=== PATIENT | male | born 1935 | race Caucasian/White ===

== ENCOUNTER 2018-12-11 02:20 | Inpatient (IN) ==
[2018-12-11] MEDS ORDERED: Aminoglycoside Consult 1 EACH MC ONE (04:10)
[2018-12-11 05:15] LABS: Basophils % 0.1 %; Eosinophils % 0.1 %; Hematocrit 34.4 % (37.5-50.1); Hemoglobin 10.6 g/dL (12.9-16.9); Immature Granulocytes % 0.2 % (0-4); Lymphocytes # 0.6 K/mcL (0.6-4.6); Lymphocytes % 4.9 %; Mean Corpuscular HGB Conc 30.8 g/dL (31.6-35.5); Mean Corpuscular Hemoglobin 29.6 pg (28.0-33.3); Mean Corpuscular Volume 96.1 fL (83.0-100.0); Mean Platelet Volume 9.7 fL (9.4-12.4); Monocytes # 0.7 K/mcL (0.0-1.3); Monocytes % 5.6 %; Neutrophils # 11.4 K/mcL (1.6-8.9); Platelet Count 178 K/mcL (140-400); Red Blood Count 3.58 M/mcL (4.19-5.50); Red Cell Distribution Width 15.3 % (11.5-14.5); Segmented Neutrophils % 89.1 %
[2018-12-11 05:22] LABS: INR 1.1; Prothrombin Time 11.9 Seconds (9.4-12.1)
[2018-12-11 05:24] LABS: Activated Partial Thrombo Time 43.4 Seconds (26.0-36.0)
[2018-12-11 05:35] LABS: Albumin 3.4 g/dL (3.5-5.7); Bilirubin,Direct 0.1 mg/dL (0.0-0.2); Bilirubin,Indirect 0.4 mg/dL (0.0-1.2); Bilirubin,Total 0.5 mg/dL (0.3-1.0); Calcium 8.2 mg/dL (8.6-10.3); Globulin 3.3 g/dL (2.4-3.5); Potassium 4.2 mEq/L (3.5-5.1); Total Protein 6.7 g/dL (6.4-8.9)
[2018-12-11] MEDS: Pantoprazole 40 MG in 0.9 % Sodium Chloride Mini Bag 100 ML IVC SCH ×4 (05:52→23:35)
[2018-12-11] MEDS: Ondansetron 4 MG/2 ML VIAL IVP PRN (05:54)
[2018-12-11] MEDS ORDERED: Naloxone 0.4 MG/ML INJ IVP PRN (05:55)
--- NOTE | 2018-12-11 06:09 | Internal Med History&Physical ---
Date of Encounter: 12/11/18 Time of Encounter: 05:40 Internal Medicine - H&P: HPI Chief complaint: hematemesis; bloody stool Admitted From: Hospital to Hospital Transfer Plans for Post Hospital Care: Home History of present illness: Mr. Bain is a 83 year old male who presents in transfer from [place] [facility] for concerns of hematemesis followed by bloody stool. He initially thought he had some gastroenteritis as he had acute onset of nausea, abdominal cramping, and vomiting. He did have some coffee-ground emesis and then bloody stool at home. This prompted him to go to the ER where he was seen, evaluated, and transferred here to [facility] for further workup and care. Prior to my assessment of the patient, his nurse stated he had one bloody bowel movement. I ordered some stat labs and medications and then I saw him shortly thereafter. His repeat hemoglobin is actually a little higher than it was at [place]. He does describe 2 bouts of bloody stools today and then coffee-ground emesis earlier tonight. Prior to today, has had no vomiting blood or bloody stools. He has had some heartburn for last 3 days. He has had some nausea and poor appetite last 2 days. He denies any fevers, chills, or night sweats. He does state he has had a history of stomach ulcer many years ago and that his symptoms he has now are identical to when he had his ulcer. He denies any heavy alcohol use, heavy NSAID use, or heavy caffeine use. Past Med Surg Social Fam HX - Past Medical History Attestation: Yes The following information was validated with the patient. Source: patient, old records reviewed Medical history: arthritis (Gout), coronary artery disease, GERD, GI bleed, hyperlipidemia, hypertension, renal disease, thyroid disease Additional medical history: murrur, stomach ulcers Psychiatric history: no psych history - Past Surgical History Surgical History: angioplasty/stent (Single, 2015), appendectomy, orthopedic, other (Rotator cuff repair) Additional surgical history: rotator cuff - Social History Smoking Status: Never smoker Smokeless Tobacco Status: No Alcohol use: occasionally Drug use: none Current living situation: Home, With Family Activity Level: Independent ambulation Recent Out of Country Travel Within the Last 8 Weeks: No - Family History Mother History Unknown: Yes Living Status: Father History Unknown: Yes Living Status: Internal Medicine - H&P: Meds Atorvastatin [Lipitor] 40 mg PO HS 12/11/18 [History] Febuxostat [Uloric] 40 mg PO DAILY 12/11/18 [History] Furosemide [Lasix] 10 mg PO BID 12/11/18 [History] Levothyroxine [Synthroid] 150 mcg PO DAILY 12/11/18 [History] Metoprolol [Lopressor] 100 mg PO BID 12/11/18 [History] Allergy/AdvReac Type Severity Reaction Status Date / Time No Known Allergies Allergy Unverified 12/11/18 00:55 - Constitutional Constitutional: no chills, no fever(s), no night sweats - EENT Eyes: no blurry vision, no change in vision Ears: no ear pain, no tinnitus Nose, mouth and throat: no nasal congestion, no sinus pressure, no sore throat - Cardiovascular Cardiovascular ROS IM: no chest pain, no dyspnea, no dyspnea on exertion, no orthopnea, no palpitations, no syncope - Respiratory Respiratory: no cough, no hemoptysis, no wheezing, no chest congestion, no excessive phlegm production, no change in phlegm color - Gastrointestinal Gastrointestinal: coffee ground emesis, cramping, heartburn, hematochezia, nausea, vomiting, no diarrhea, no melena - Genitourinary Genitourinary ROS male: no dysuria, no flank pain, no hematuria - Musculoskeletal Musculoskeletal ROS IM: no arthralgias, no back pain - Integumentary Integumentary IM: no rash, no jaundice - Neurological Neurological ROS: no dizziness, no focal weakness, no frequent falls, no headache(s) - Psychiatric Psychiatric: no anxiety, no depression - Endocrine Endocrine IM: no polydipsia, no polyphagia, no polyuria - Allergic/Immunologic Allergic/Immunologic: GI upset with certain foods, no wheezing - Constitutional Vitals: Temp Pulse Resp BP Pulse Ox 97.7 F 72 15 165/73 95 12/11/18 04:37 12/11/18 04:37 12/11/18 04:37 12/11/18 04:37 12/11/18 04:37 General appearance: Present: cooperative, A&O X 3, pleasant, no acute distress, answers questions appropriately Exam: see below - Head Head exam: Present: atraumatic, normal inspection - Eye Eye exam: Present: EOMI, PERRL. Absent: scleral icterus Pupils: Present: normal accommodation - ENT ENT exam: Present: mucous membranes dry, normal exam, normal oropharynx - Neck Neck exam general surgery: Present: full ROM, supple, trachea midline. Absent: tenderness, nuchal rigidity, thyromegaly - Respiratory Respiratory exam: Present: CTAB. Absent: chest wall tenderness, rales, rhonchi, wheezes - Cardiovascular Cardiovascular exam: Present: RRR, +S1, +S2, systolic murmur (grade 3). Absent: diastolic murmur - GI/Abdominal GI/Abdominal exam: Present: normal bowel sounds, soft, tenderness (epigastric/RUQ area), no peritoneal signs. Absent: guarding, hepatomegaly, mass, rebound, splenomegaly - Extremities Exam Extremities exam: Present: full ROM, normal capillary refill, warm, radial puls es palpable and symmetrical. Absent: calf tenderness, pedal edema, tenderness - Back Exam Back exam: Absent: CVA tenderness (L), CVA tenderness (R) - Neurological Exam Neurological exam: Present: alert, CN II-XII intact, oriented X3, no focal deficits, strengths equal and symetr throughout - Psychiatric Psychiatric exam: Present: normal affect, normal mood - Skin Skin exam: Present: dry, intact, warm Internal Med - H&P Results - Labs CBC & Chem 7: 12/11/18 05:00 12/11/18 05:00 Labs: Short CBC 12/11/18 Range/Units 05:00 WBC 12.8 H (4.3-11.1) K/mcL Hgb 10.6 L (12.9-16.9) g/dL Hct 34.4 L (37.5-50.1) % Plt Count 178 (140-400) K/mcL Neutrophils # 11.4 H (1.6-8.9) K/mcL BMP 12/11/18 05:00 Sodium 138 Potassium 4.2 Chloride 107 Carbon Dioxide 21 L BUN 48 H Creatinine 1.58 H Glucose 137 H Calcium 8.2 L Liver Function 12/11/18 Range/Units 05:00 Total Bilirubin 0.5 (0.3-1.0) mg/dL Direct Bilirubin 0.1 (0.0-0.2) mg/dL AST 28 (13-39) Units/L ALT 13 (7-52) Units/L Alkaline Phosphatase 80 (34-104) Units/L Albumin 3.4 L (3.5-5.7) g/dL - EKG Data -: EKG Interpreted by Myself - EKG Data Prior EKG available for review: no EKG comments: 12/11/18 06:16 NSR; subtle ST-T depressions laterally - Assessment and plan (1) Upper GI bleeding Current Visit: Yes Status: Acute Assessment and plan: 1. Will type and cross PRBC units for possible transfusion. 2. Monitor serial H/H. 3. Will place on protonix drip. 4. Patient will need EGD today or tomorrow; Colonoscopy likely outpatient. (2) Abdominal pain Current Visit: Yes Status: Acute Assessment and plan: 1. Will order CT scan of abdomen, draw blood cultures, and start IV antibiotics to cover GI jazlyn. Qualifiers: Abdominal location: epigastric Qualified Code(s): R10.13 - Epigastric pain (3) Chronic renal insufficiency Current Visit: No Status: Acute Assessment and plan: 1. Monitor renal function and consult nephrology if function declines. 2. Will provide jayden iVF hydration. Qualifiers: Chronic kidney disease stage: stage 2 (mild) Qualified Code(s): N18.2 - Chronic kidney disease, stage 2 (mild) (4) DVT prophylaxis Current Visit: Yes Status: Acute Assessment and plan: 1, EPCD's. - Time Spent With Patient Total time spent is greater than 50% in coordination of care (as documented) at patient's floor/unit and/or counseling patient:
[2018-12-11] MEDS: 0.9 % Sodium Chloride 1,000 ML IVC SCH ×2 (09:50→19:53)
[2018-12-11] MEDS: MetroNIDAZOLE 500 MG/100 ML 500 MG/100 ML BAG IVPB SCH ×2 (09:53→16:33)
[2018-12-11] MEDS: Piperacillin/Tazobactam 3.375 GM in 0.9 % Sodium Chloride Mini Bag 100 ML IVPB SCH ×2 (09:56→16:33)
[2018-12-11 11:02] LABS: Hematocrit 32.7 % (37.5-50.1); Hemoglobin 10.5 g/dL (12.9-16.9)
[2018-12-11] MEDS: Nitroglycerin 0.4 MG TAB.SUBL SL PRN ×4 (14:41→19:10)
[2018-12-11] MEDS ORDERED: Furosemide 20 MG TABLET PO PRN (15:54)
[2018-12-11] MEDS ORDERED: *HR* Heparin 5,000 UNIT/ML VIAL IVP PRN ×2 (16:29)
[2018-12-11] MEDS ORDERED: *HR* Heparin 5,000 UNIT/ML VIAL IVP ONE (16:29)
--- NOTE | 2018-12-11 16:41 | Event Note ---
Date of Encounter: 12/11/18 Time of Encounter: 16:36 Patient was seen and examined. I evaluated the patient this morning. He was doing well. Admitted by my Colleague for GI bleed issues. Did not have any episodes of bleed while here. His H/H has been stable. Hgb most recent 10.5 at 10:49 am and prior to that 10.6 at 5:00 am. Vitals been stable. Around 3:45 pm he started developing typical chest pain symptoms. Trops ordered and EKG. SL nitro relieved pain a couple times. Ended up ordering Nitro drip. Trops came back high at .30. EKG concerning for ST elevation in lead III. Multiple ST depressions and T wave inversions noted. This was all new compared to previous EKGs this morning upon admission and from one on record from 2017. Patient has a history of CAD and he tells me Dr. Juarez put "one stent in the main artery". Spoke to Dr. Muna Oliveira and sent her the EKG and she was concerned for ischemic changes as well. Patient with GI bleed but no issues with bleed while here. With current chest pain and hemodynamic stability and after speaking with Dr. Oliveira, she was agreeable to starting heparin drip. Will transfer to 2N/ICU. Trend cardiac enzymes. Will repeat EKG in [address] Oliveira.
[2018-12-11 17:21] LABS: Hematocrit 30.8 % (37.5-50.1); Hemoglobin 9.8 g/dL (12.9-16.9); Mean Corpuscular HGB Conc 31.8 g/dL (31.6-35.5); Mean Corpuscular Hemoglobin 30.2 pg (28.0-33.3); Mean Corpuscular Volume 94.8 fL (83.0-100.0); Mean Platelet Volume 9.6 fL (9.4-12.4); Platelet Count 175 K/mcL (140-400); Red Blood Count 3.25 M/mcL (4.19-5.50); Red Cell Distribution Width 15.4 % (11.5-14.5)
[2018-12-11 17:29] LABS: Prothrombin Time 11.8 Seconds (9.4-12.1)
[2018-12-11] MEDS ORDERED: Nitroglycerin 0.4 MG TAB.SUBL SL ONE (17:46)
[2018-12-11] MEDS: Heparin 25,000 UNIT/500 ML D5W 25,000 UNIT/500 ML BAG IVC SCH (18:00)
[2018-12-11] MEDS ORDERED: *HR* Morphine 2 MG/ML SYRINGE IVP ONE (18:15)
[2018-12-11] MEDS ORDERED: *HR* Morphine 2 MG/ML SYRINGE IVP PRN (18:47)
[2018-12-11] MEDS: Nitroglycerin 25 MG/250 ML INFUS..BTL IVC SCH (19:00)
[2018-12-11] MEDS: Metoprolol 100 MG TABLET PO SCH (20:12)
--- NOTE | 2018-12-11 20:16 | Cardiology Consult Note ---
Date of Encounter: 12/11/18 Time of Encounter: 19:45 Assessment and Plan (1) Chest pain Current Visit: Yes Status: Acute Pt's chest discomfort likely multifactorial. EKG demonstrates diffuse ST depression concerning for ischemia. Has mild elevation of troponin to 0.33, 0.42. Has known history of severe 3VCAD. Currently CP free on NTG and heparin gtts. Has history of ulcer disease and presented with hematemesis and hematochezia concerning for acute GI bleed. Discussed options with patient and hospitalist. Difficult situation due to concern of active GI bleed. Will monitor pt closely overnight. If symptoms become refractory to aggressive m edical management, will consider emergent [facility] tonight, although will be increased risk and options are limited due to GI bleeding. Primary service will continue to monitor for recurrent GI bleeding and monitor Hb. Would transfuse to keep Hb around/above 10. Will check echocardiogram to evaluate LV function, . Qualifiers: Chest pain type: unspecified Qualified Code(s): R07.9 - Chest pain, unspecified (2) Coronary artery disease Current Visit: Yes Status: Chronic Known history of CAD s/p PCI with BMS 2014. Continue aspirin, nitrates, beta blockade. Qualifiers: Coronary Disease-Associated Artery/Lesion type: [place] artery [place] vs. transplanted heart: [place] heart Associated angina: with unstable angina Qualified Code(s): I25.110 - Atherosclerotic heart disease of [place] coronary artery with unstable angina pectoris (3) History of coronary artery stent placement Current Visit: No Status: Chronic (4) Upper GI bleeding Current Visit: Yes Status: Acute Per primary service. (5) Syncope Current Visit: Yes Status: Acute Per reports, occurred in setting of n/v, hematemesis. Will monitor on telemetry for arrhythmia. Qualifiers: Syncope type: unspecified Qualified Code(s): R55 - Syncope and collapse Discussion w patient/family: The assessment and plan as outlined above was discussed with the patient and/or family members who expressed understanding and agreement. All questions were answered. Thank you for involving us in the care of your patient. Please call with any questions. History of Present Illness Consult date: 12/11/18 Consult reason: chest pain Chief complaint: chest pain History of present illness: Mr. Bain is a 83 year old male with CAD s/p PCI, mild , HTN, hyperlipidemia, GERD presents to [facility] as transfer from [place] [facility] for evaluation of GI bleed. Pt states that over past few days has had intermittent chest discomfort described as indigestion, burning similar to previous ulcer. Separately, he also has noted intermittent chest pain that he has been taking isosorbide for over the past few months. The isosorbide did relieve his chest pain, but not the indigestion/chest burning. Yesterday, at home pt had acute onset of n/v, abdominal discomfort. Subsequently had emesis that "looked like coffee." Pt unsure but thinks he may have lost consciousness for a few minutes. States then called EMS. Pt taken to [place] ED for further evaluation and then pt then transferred here. While on floor, per pt and notes, pt had bloody BM. Earlier this evening, pt had onset of substernal chest discomfort only temporarily relieved by SL NTG. EKG performed which demonstrated ST depression in precordial leads as well as I, aVL and 0.[address] elevation in III. Pt started on NTG gtt, heparin gtt and given Plavix load and transferred to ICU. I was called to see pt due to EKG changes, CP. On my arrival to ICU, pt currently chest pain free, resting comfortably. Pt has known history of CAD s/p PCI of RCA with BMS in 2014. Reviewed report and catheterization films. Distal L main 30% with 40% prox LAD, 50% mid LAD, 95% small diagonal 1. Proximal Cx 90%- small vessel not amenable to revascul arization. RCA is dominant vessel and is diffusely diseased and heavily calcified vessel. Mid RCA had 95% lesion which was stented with BMS. Distal RCA was heavily calcified with 60-70% lesions, 80% R PDA. Per cath report, Dr. Juarez unable to pass equipment into distal RCA due to heavy calcification. Medical therapy recommended vs. possible rotablator. Had stress test 2016 which demonstrated fixed perfusion defect of inferior and inferolateral mc consistent with prior infarct. Negative for ischemia, EF 57%. Most recent echocardiogram April 2017- EF 60% with normal LV size, basal inferior wall hypokinesis, mild , moderate LAE. Past Med Surg Social Fam HX - Past Medical History Medical history: arthritis (Gout), coronary artery disease, GERD, GI bleed, hyperlipidemia, hypertension, renal disease, thyroid disease Additional medical history: murrur, stomach ulcers Psychiatric history: no psych history - Past Surgical History Surgical History: angioplasty/stent (Single, 2015), appendectomy, orthopedic, other (Rotator cuff repair) Additional surgical history: rotator cuff - Social History Smoking Status: Never smoker Smokeless Tobacco Status: No Alcohol use: occasionally Drug use: none - Family History Mother History Unknown: Yes Living Status: Father History Unknown: Yes Living Status: Medications and Allergies Atorvastatin [Lipitor] 40 mg PO HS 12/11/18 [History] Febuxostat [Uloric] 40 mg PO DAILY 12/11/18 [History] Furosemide [Lasix] 10 mg PO BID 12/11/18 [History] Levothyroxine [Synthroid] 150 mcg PO DAILY 12/11/18 [History] Metoprolol [Lopressor] 100 mg PO BID 12/11/18 [History] Allergy/AdvReac Type Severity Reaction Status Date / Time No Known Allergies Allergy Unverified 12/11/18 00:55 All Systems Review: The remainder of the systems were reviewed and are negative - Cardiovascular Cardiovascular: as per HPI Physical Examination Vital Signs, Last 4 Hours Temp Pulse Resp BP Pulse Ox 12/11/18 19:00 97.7 F 91 18 143/77 97 12/11/18 16:59 98.4 F 87 22 131/62 94 12/11/18 16:15 98.5 F 99 123/62 General: Conversant, No Apparent Distress HEENT: Atraumatic, Normocephaly, Mucus Membranes Moist Neck: No JVD, Normal carotid pulses Cardiac: Reg Rate and Rhythm, Normal S1 and S2, Other (grade 2/6 systolic murmur LSB) Lungs: Normal Breath Sounds, No Wheeze, Rales, Rhonchi Neuro: Alert and responsive, No focal deficits noted Abdomen: Soft, Non-Tender Skin: No rashes noted on visualized skin Musculoskeletal: No Chest Wall Tenderness Extremities: No Clubbing, No Cyanosis, No Edema, Normal Pulses Results 12/11/18 17:01 12/11/18 05:00 Lab Results 12/11/18 12/11/18 12/11/18 05:00 05:00 05:00 WBC 12.8 H Hgb 10.6 L Hct 34.4 L Plt Count 178 INR 1.1 APTT 43.4 H Sodium 138 Potassium 4.2 Chloride 107 Carbon Dioxide 21 L BUN 48 H Creatinine 1.58 H Glucose 137 H Calcium 8.2 L Magnesium 2.0 Total Bilirubin 0.5 AST 28 ALT 13 Alkaline Phosphatase 80 Troponin I Amylase 57 Lipase 40 12/11/18 12/11/18 12/11/18 10:49 14:54 17:01 WBC 10.4 Hgb 10.5 L 9.8 L Hct 32.7 L 30.8 L Plt Count 175 INR APTT Sodium Potassium Chloride Carbon Dioxide BUN Creatinine Glucose Calcium Magnesium Total Bilirubin AST ALT Alkaline Phosphatase Troponin I 0.30 H* Amylase Lipase 12/11/18 12/11/18 17:01 17:01 WBC Hgb Hct Plt Count INR 1.0 APTT Sodium Potassium Chloride Carbon Dioxide BUN Creatinine Glucose Calcium Magnesium Total Bilirubin AST ALT Alkaline Phosphatase Troponin I 0.42 H* Amylase Lipase Consult Discharge Plan - Plan Referrals: NONE,PCP [Primary Care Provider] -
[2018-12-12] MEDS: MetroNIDAZOLE 500 MG/100 ML 500 MG/100 ML BAG IVPB SCH (00:04)
[2018-12-12] MEDS: Aspirin 81 MG TAB.CHEW PO SCH ×2 (00:11→09:45)
[2018-12-12] MEDS: Piperacillin/Tazobactam 3.375 GM in 0.9 % Sodium Chloride Mini Bag 100 ML IVPB SCH (00:19)
[2018-12-12] MEDS: 0.9 % Sodium Chloride 1,000 ML IVC SCH ×2 (02:08→05:15)
[2018-12-12] MEDS: Pantoprazole 40 MG in 0.9 % Sodium Chloride Mini Bag 100 ML IVC SCH ×5 (04:26→23:17)
[2018-12-12] MEDS: Nitroglycerin 0.4 MG TAB.SUBL SL PRN ×3 (05:47→17:10)
[2018-12-12] MEDS ORDERED: Perflutren Lipid Microsphere 1.3 ML in 0.9 % Sodium Chloride 8.7 ML IVP ONE (07:05)
--- NOTE | 2018-12-12 07:43 | Internal Med Progress Note ---
Hospitalist Progress Note - Encounter Date of Encounter: 12/12/18 Time of Encounter: 07:41 - Subjective Interval History: Patient had chest pain overnight and elevation in his troponin with ST changes. He was seen by cardiology, Dr. Oliveira who spoke with the patient. Plans for possible intervention today. He was started on nitroglycerin drip and heparin drip. Patient states he is doing well this morning. States his chest pain resolved an hour ago. Denies abdominal pain. Patient had 1 bowel movement overnight that was determined to have dark blood consistent with old blood in it. No nausea or vomiting overnight. He does complain of a cough with productive sputum. Vital stable. - Exam Vitals: Temp Pulse Resp BP Pulse Ox 98.2 F 70 14 104/59 89 12/12/18 03:42 12/12/18 06:00 12/12/18 06:00 12/12/18 06:00 12/12/18 06:00 Exam: Gen: alert, no acute distress Eyes: EOMI intact. normal conjunctiva ENT: oral mucosa moist Cardiovascular: RRR, bilateral radial pulses equal, normal S1, S2 Respiratory: decreased breath sounds on the left, Right clear to auscultation. No wheezing or rhonchi Abdomen soft, non tender, no distention Extremities: normal capillary refill. No tenderness on extremities, mild BLE edema Psych: Normal mood and affect Neuro: AAOx3 Skin: warm, dry, intact - Assessment and Plan (1) STEMI (ST elevation myocardial infarction) Current Visit: Yes Status: Acute Assessment and Plan: Historyof 3VCAD. 1 stent placed in the RCA in the past. Troponin 0.3, 0.42, 2.97, 8.40 on this admission EKG with ST changes and ischemia concerning for inferior [facility] Cardiology following. Appreciate their recommendations. Medical management. On heparin and Plavix. Received loading dose of plavix yesterday. Left heart cath today. Echo completed and results pending. (2) GI bleed Current Visit: Yes Status: Acute Assessment and Plan: No further episodes of hematemesis or hematochezia, melena. H/H stable. Likely source is upper GI bleed. CT with possible gastritis/duodenitis On Protonix drip. Will likely need upper endoscopy. GI on consult (3) Abdominal pain Current Visit: Yes Status: Resolved Assessment and Plan: Resolved. CT abdomen and pelvis without IV or oral contrast performed yesterday. Results with inflammatory changes and flattened stranding, mild wall thickening in the second portion of the duodenum concerning for possible duodenitis/PUD. Flagyl discontinued after speaking with pharmacy Continue with Zosyn, day 2, for possible duodenitis (4) Left upper lobe pneumonia Current Visit: Yes Status: Acute Assessment and Plan: CT imaging shows focal consolidation the lingula with bronco grams which may represent left upper lobe pneumonia. Currently on Zosyn. Nasal swab for MRSA sent. Negative. Patient received one dose vancomycin which has been discontinued as swab is negative. (5) Chronic renal insufficiency Current Visit: No Status: Acute Assessment and Plan: Stable. 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 on CT DVT Prophylaxis: heparin - Time Spent with Patient Total time spent is greater than 50% in coordination of care (as documented) at patient's floor/unit and/or counseling patient: Plan of Care Discussed with: other (pharmacy) Internal Medicine: Result - Labs CBC & Chem 7: 12/12/18 09:18 12/12/18 09:18 Labs: Short CBC 12/11/18 12/11/18 Range/Units 10:49 17:01 WBC 10.4 (4.3-11.1) K/mcL Hgb 10.5 L 9.8 L (12.9-16.9) g/dL Hct 32.7 L 30.8 L (37.5-50.1) % Plt Count 175 (140-400) K/mcL Cardiac Enzymes 12/11/18 12/11/18 12/11/18 Range/Units 14:54 17:01 23:03 Troponin I 0.30 H* 0.42 H* 2.97 H* (< 0.04) ng/mL - ABG Interpretation ABG results: PT/INR, D-dimer PT 11.8 Seconds (9.4-12.1) 12/11/18 17:01 - Impressions Impressions Abdomen/Pelvis CT 12/11/18 06:16 IMPRESSION: Focal inflammatory changes and fat stranding with possible mild wall thickening of the second portion of the duodenum. This is nonspecific on this CT examination without intravenous or oral contrast. Recommend endoscopic correlation for possible peptic ulcer disease or duodenitis given history of GI bleed. Focal consolidation in the lingula with air bronchograms may represent left upper lobe pneumonia. Bronchiectasis in both lung bases with scarring in the right middle lobe likely sequela of prior infectious/inflammatory process. Calcified pleural plaques at the right lung base may represent sequela of prior asbestos exposure or may represent sequela of prior empyema. Severe atherosclerotic calcifications of the coronary arteries as well as the aorta and branch vessels. 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 D/ / 12/11/2018 09:17:58 Nav Valle MD / [place] Interpreting Provider: Nav Valle MD Consult Discharge Plan - Plan Referrals: NONE,PCP [Primary Care Provider] - (1) STEMI (ST elevation myocardial infarction) Qualifiers: Involved coronary artery: unspecified coronary artery Qualified Code(s): I21.3 - ST elevation (STEMI) myocardial infarction of unspecified site (2) GI bleed Qualifiers: GI bleed type/associated pathology: gastric ulcer Qualified Code(s): K25.4 - Chronic or unspecified gastric ulcer with hemorrhage (3) Abdominal pain Qualifiers: Abdominal location: epigastric Qualified Code(s): R10.13 - Epigastric pain (5) Chronic renal insufficiency Qualifiers: Chronic kidney disease stage: stage 2 (mild) Qualified Code(s): N18.2 - Chronic kidney disease, stage 2 (mild)
--- NOTE | 2018-12-12 08:34 | Cardiology Progress Note ---
Date of Encounter: 12/12/18 Time of Encounter: 08:00 Assessment and Plan (1) Chest pain Current Visit: Yes Status: Acute Patient initially presented to [place] ED on 12/10/18 due to hematochezia and melena secondary to ulcer "flare," developed CP as inpatient on 12/11. Pt's chest discomfort likely multifactorial. EKG demonstrates diffuse ST depression concerning for ischemia. Peak troponin thus far, 2.97--continue to trend. Has known history of severe 3 VCAD. Episode of chest pain again this morning requiring NTG tab and increase in NTG gtt; chest pain free upon exam. He reports worsening angina over the past several months; utilizes prn Isordil at home for breakthrough relief. Again, has history of ulcer disease and presented with hematemesis and hematochezia concerning for acute GI bleed; Dr. Muna Oliveira discussed and reviewed options/high risk LHC with patient. Difficult situation due to concern of active GI bleed--H/H has remained stable on heparin gtt, asa/plavix--continue to determine if patient can tolerate DAPT. CBC pending this AM. Echo pending. Will continue to monitor pt closely. Will discuss and review with Dr. Juarez Qualifiers: Chest pain type: chest pain due to myocardial ischemia Ischemic chest pain type: unstable angina pectoris Qualified Code(s): I20.0 - Unstable angina (2) Coronary artery disease Current Visit: Yes Status: Chronic Known history of CAD s/p PCI with BMS 2014. Continue aspirin, nitrates, beta blockade. Qualifiers: Coronary Disease-Associated Artery/Lesion type: osage artery U[place] vs. t ransplanted heart: osage heart Associated angina: with unstable angina Qualified Code(s): I25.110 - Atherosclerotic heart disease of osage coronary artery with unstable angina pectoris (3) History of coronary artery stent placement Current Visit: No Status: Chronic (4) GI bleed Current Visit: Yes Status: Acute Qualifiers: GI bleed type/associated pathology: gastric ulcer Qualified Code(s): K25.4 - Chronic or unspecified gastric ulcer with hemorrhage Discussion w patient/family: The assessment and plan as outlined above was discussed with the patient and/or family members who expressed understanding and agreement. All questions were answered. Thank you for involving us in the care of your patient. Please call with any questions. Subjective Principal diagnosis: GI bleed, elevated troponin Interval history: Seen and examined. Episode of typical chest pain/angina this AM, now pain free after NTG gtt titration and prn NTG tab. No further episodes of melena, hematochezia. No other symptoms reported this AM. technology consultant at bedside. Objective Vital Signs, Last 4 Hours Temp Pulse Resp BP Pulse Ox 12/12/18 08:21 98.5 F 12/12/18 08:05 69 12/12/18 08:00 98.5 F 71 18 113/61 94 12/12/18 07:00 63 16 99/56 93 12/12/18 06:00 70 14 104/59 89 12/12/18 05:00 62 16 94/50 100 General: Conversant HEENT: Atraumatic, Normocephaly, Mucus Membranes Moist Cardiac: Reg Rate and Rhythm, Normal S1 and S2 Lungs: Normal Breath Sounds Neuro: Alert and responsive Abdomen: Soft Skin: No rashes noted on visualized skin Musculoskeletal: No Chest Wall Tenderness Extremities: Other (mild, BLE edema. ) Results 12/11/18 17:01 12/11/18 05:00 Lab Results 12/11/18 12/11/18 12/11/18 10:49 14:54 17:01 WBC 10.4 Hgb 10.5 L 9.8 L Hct 32.7 L 30.8 L Plt Count 175 INR Troponin I 0.30 H* 12/11/18 12/11/18 12/11/18 17:01 17:01 23:03 WBC Hgb Hct Plt Count INR 1.0 Troponin I 0.42 H* 2.97 H* Active Medications Aspirin (Aspirin) 81 mg PO DAILY [facility] Stop: 06/12/19 21:01 Last Admin: 12/12/18 00:11 Dose: 81 mg Atorvastatin Calcium (Lipitor) 80 mg PO HS [facility] Stop: 06/12/19 21:01 Last Admin: 12/11/18 20:12 Dose: 80 mg Clopidogrel Bisulfate (Plavix) 75 mg PO DAILY [facility] Stop: 06/13/19 09:01 Furosemide (Lasix) 20 mg PO DAILY PRN PRN Reason: Edema Stop: 06/12/19 15:55 Heparin Sodium (Porcine) (Heparin) 4,000 unit IVP Q6HR PRN PRN Reason: SEE COMMENTS Stop: 06/12/19 16:30 Heparin Sodium (Porcine) (Heparin) 2,000 unit IVP Q6H PRN PRN Reason: SEE COMMENTS Stop: 06/12/19 16:30 Pantoprazole Sodium 40 mg/ (Sodium Chloride) 100 mls @ 20 mls/hr IVC .Q5H [facility] Stop: 06/12/19 04:46 Last Admin: 12/12/18 04:26 Dose: 20 mls/hr Piperacillin Sod/Tazobactam (Sod 3.375 gm/ Sodium Chloride) 100 mls @ 25 mls/hr IVPB Q8HR [facility] Stop: 06/12/19 08:01 Last Infusion: 12/12/18 04:30 Dose: Infused Heparin Sodium/Dextrose (Heparin 25,000 Unit/500 Ml D5w) 25,000 unit in 500 mls @ 20.01 mls/hr IVC .Q24H [facility]; Protocol Stop: 06/12/19 16:31 Last Titration: 12/12/18 03:34 Dose: 7.05 unit/kg/hr, 14.7 mls/hr Nitroglycerin (Nitroglycerin Premix 25 Mg/250 Ml) 25 mg in 250 mls @ 1.5 mls/hr IVC .Q24H [facility]; Protocol Stop: 06/12/19 16:31 Last Titration: 12/12/18 05:46 Dose: 20 mcg/min, 12 mls/hr Sodium Chloride (0.9 % Sodium Chloride) 1,000 mls @ 100 mls/hr IVC .Q10H [facility] Stop: 06/13/19 01:46 Last Admin: 12/12/18 05:15 Dose: 100 mls/hr Vancomycin HCl 1,250 mg/ (Sodium Chloride) 250 mls @ 166.67 mls/hr IVPB Q24H [facility] Stop: 06/13/19 09:01 Isosorbide Dinitrate (Isordil) 5 mg PO TIDAC [facility] Stop: 06/12/19 16:31 Last Admin: 12/11/18 16:33 Dose: 5 mg Levothyroxine Sodium (Synthroid) 125 mcg PO DAILY@0630 [facility] Stop: 06/13/19 06:31 Last Admin: 12/12/18 05:31 Dose: 125 mcg Metoprolol Tartrate (Lopressor) 100 mg PO BID [facility] Stop: 06/12/19 21:01 Last Admin: 12/11/18 20:12 Dose: 100 mg Morphine Sulfate (Morphine Sulfate) 2 mg IVP Q4H PRN; Protocol PRN Reason: Chest Pain Stop: 06/12/19 18:48 Naloxone HCl (Narcan) 0.4 mg IVP Q2MIN PRN PRN Reason: SEE COMMENTS Stop: 06/12/19 05:56 Nitroglycerin (Nitroglycerin) 0.4 mg SL Q5MIN PRN PRN Reason: Chest Pain Stop: 06/12/19 14:32 Last Admin: 12/12/18 05:47 Dose: 0.4 mg Ondansetron HCl (Zofran) 4 mg IVP Q6HR PRN; Protocol PRN Reason: Nausea Stop: 06/12/19 04:34 Last Admin: 12/11/18 05:54 Dose: 4 mg - Imaging and Cardiology Chest Xray: report reviewed Echo: report reviewed Cardiac cath: report reviewed Other Results: 12 hour tele: avg 63 SR. No significant event noted. - EKG Interpretation EKG results cardiology: personally reviewed Consult Discharge Plan - Plan Referrals: NONE,PCP [Primary Care Provider] -
--- NOTE | 2018-12-12 09:14 | Event Note ---
Date of Encounter: 12/12/18 Time of Encounter: 09:09 Patient was seen and examined. I agree with the progress note as written by the resident physician. Patient had been admitted for GI bleed. H/H has been stable. Has been on protonix drip. No episodes of GI bleed while here. GI is consulted. Yesterrday had chest pain. Had an EKG that was concerning for ischemic chanes. Trops trended up and most recent at 2.97. On nitro drip, heparin drip. Loaded with plavix yesterday. Cardiology consulted and given risks, have elected to hold of hold off on LHC for now. Continues to have CP and cardiology is aware. Vitals are mostly stable. In the ICU on 4L NC GEN: NAD CVS: RRR. S1, S2, No m/r/g RESP: CTAB ABD: Soft, NT, ND, +BS EXT: No edema. 2+ DP. No rashes NEURO: Nonfocal c/w heparin drip c/w nitor drip. IV morphine as well On ASA/plavix now per cardiology On BB, Isordil, and a statin Repeat trop pending. Echo done this am and cardiology to evaluate for possible LHC after that c/w protonix drip. f/u on labs this am GI is consulted. No issues with GI bleed while here NPO
[2018-12-12 09:38] LABS: Basophils # 0.1 K/mcL (0.0-0.2); Basophils % 0.5 %; Eosinophils # 0.3 K/mcL (0.0-0.6); Eosinophils % 3.4 %; Hematocrit 30.5 % (37.5-50.1); Hemoglobin 9.6 g/dL (12.9-16.9); Immature Granulocytes % 0.3 % (0-4); Lymphocytes # 0.9 K/mcL (0.6-4.6); Lymphocytes % 9.3 %; Mean Corpuscular HGB Conc 31.5 g/dL (31.6-35.5); Mean Corpuscular Hemoglobin 30.7 pg (28.0-33.3); Mean Corpuscular Volume 97.4 fL (83.0-100.0); Mean Platelet Volume 9.8 fL (9.4-12.4); Monocytes # 0.6 K/mcL (0.0-1.3); Monocytes % 6.4 %; Neutrophils # 7.4 K/mcL (1.6-8.9); Platelet Count 157 K/mcL (140-400); Red Blood Count 3.13 M/mcL (4.19-5.50); Red Cell Distribution Width 15.9 % (11.5-14.5); Segmented Neutrophils % 80.1 %
[2018-12-12] MEDS: Metoprolol 100 MG TABLET PO SCH ×2 (09:45→19:58)
[2018-12-12 09:54] LABS: Albumin 3.2 g/dL (3.5-5.7); Bilirubin,Total 0.6 mg/dL (0.3-1.0); Calcium 8.2 mg/dL (8.6-10.3); Globulin 3.2 g/dL (2.4-3.5); Magnesium 2.1 mg/dL (1.6-2.6); Potassium 4.1 mEq/L (3.5-5.1); Total Protein 6.4 g/dL (6.4-8.9)
[2018-12-12] MEDS ORDERED: ISOVUE-370 200 ML INFUS..BTL ONE (10:50)
[2018-12-12] MEDS ORDERED: Heparin 1,000 UNITS/500 mL 500 ML ONE (10:50)
[2018-12-12] MEDS ORDERED: *HR* Heparin 10,000 UNIT/10 ML VIAL ONE (10:50)
[2018-12-12] MEDS ORDERED: 0.9 % Sodium Chloride 1,000 ML ONE ×2 (10:50→10:57)
[2018-12-12] MEDS ORDERED: Nitroglycerin 1,000 MCG/10 ML VIAL IV ONE (10:50)
[2018-12-12] MEDS ORDERED: *HR* Midazolam HCl 2 MG/2 ML VIAL ONE (11:08)
[2018-12-12] MEDS ORDERED: *HR* FentaNYL (PF) 100 MCG/2 ML VIAL ONE (11:08)
--- NOTE | 2018-12-12 11:34 | Pre-Sedation Evaluation ---
Pre-sedation evaluation - Pre-sedation checklist Date of procedure: 12/12/18 Procedure: [facility] Recent Vitals: Last Vital Signs Temp 98.1 F 12/12/18 11:00 Pulse 63 12/12/18 11:12 Resp 20 12/12/18 11:00 BP 94/57 12/12/18 11:00 Pulse Ox 92 12/12/18 11:00 H&P (including ROS) documented in medical record: Yes Previous reaction to sedatives/anesthetics: No Dietary Status: Clear fluids after Midnight Dentition: No loose teeth or bridges, poor dentition ASA Classification *see protocol: CLASS II-Mild systemic disease Plan of Care: Pt appropriate candidate for procedure/moderate/conscious sedation, Risks/benefits of procedure/sedation discussed w/ patient/family Cardiac Registry (Cardio Only) - Functional Capacity Functional Capacity: >=4 METS with symptoms - Clincal Frailty Scale Clinical Frailty Scale: Managing Well
[2018-12-12] MEDS ORDERED: Verapamil 5 MG/2 ML VIAL ONE (11:40)
--- NOTE | 2018-12-12 12:30 | Invasive Diagnostic Lab Proc ---
Name: Ajay Bain Date of Study: 12/12/2018 Date: 1935 Ht: 72.8in Medical Record#: [id number] Age: 83 Wt: 194.01lb Gender: Male BSA: 2.12 Order #: [id number] BMI: 25.71 Physicians Procedure Physician: Kris Juarez MD, [facility] Referring MD: Referring MD: Staff Name Position Time In NanciSam diaz RN Monitor 11:38 AM RobertoPau RT (R) Scrub 11:38 AM King Guzman RN Developing Machine Operator 11:38 AM Indications Indication Non-Stemi Procedures Performed Procedure CORONARY ARTERY ANGIO S&I Pre-Procedure Checklist Informed consent is complete signed and on chart. H&P is on chart. ID band is on and ID verified with patient. Patient NPO for procedure The procedure was described for the patient and questions were answered. ECG is on chart. Plan of Care Patient will tolerate the procedure without complications. Adequate level of comfort will be maintained. Hemodynamics will remain stable Patient will recover from procedure without complications. Respiratory function will be maintained. Cardiac rhythm will remain stable. Patient temperature will be maintained. Patient and/or family have verbalized understanding of the procedure. Patient Education Chief Complaint/Reason for Test: Cardiac Cath Developmental Category: Geriatric (65+ years) Developmentally Appropriate for Age: Yes Learning Barriers: None Education Needs: Procedure Education Method: Verbal Information Taught: Cardiac Cath Educational Evaluation: Able to repeat information Intravenous Access Time IV Size Location DC'd Fluid/Drip Rate Units RN 20g 1 1/4" Patent On Arrival Rt Antecubital King Guzman RN 18g 1 1/4" Patent On Arrival Lt Antecubital 0.9NaCl King Guzman RN Allergies No Known Allergies Vital Signs Time BP (mmHg) HR (bpm) O2 Sat. RR (bpm) LOC 11:39 AM / % 5 = Fully awake and oriented or at pre-proc level 11:39 AM / % 4 = Oriented but drowsy 11:55 AM / % 4 = Oriented but drowsy 11:38 AM 109 / 63 65 91 % 17 11:43 AM 111 / 60 65 87 % 25 11:48 AM 93 / 51 61 83 % 10 11:53 AM 88 / 53 61 87 % 11 11:58 AM 83 / 51 60 95 % 13 12:03 PM 94 / 48 58 90 % 14 12:08 PM 101 / 54 61 93 % Procedural Medications Time Medication Dose Units Method Given By 11:43 AM Oxygen 4 L/min nasal cannula King Guzman RN 11:43 AM Versed 2 mg Intravenous King Guzman RN 11:43 AM Fentanyl 25 mcg Intravenous King Guzman RN 11:53 AM Lidocaine 2% 0.5 ml Subcutaneous Kris Juarez MD, [facility] 11:55 AM Oxygen 10 L/min Oxy Mask King Guzman RN 11:55 AM Heparin 2000 units Nitroglycerin 200 mcg Verapamil 2.5 mg Intraarterial Kris Juarez MD, [facility] ASA Classification: CLASS II- Mild systemic disease (i.e. well-controlled diabetes, hypertension, asthma, cigarette smoking) Gloria Score Preprocedure Postprocedure Activity 2- Moves 4 extremities sustained head lift Activity 2- Moves 4 extremities sustained head lift Circulation 2- SBP +/= 20 points of pre-anesthetic level Circulation 2- SBP +/= 20 points of pre-anesthetic level Consciousness 2- Awake and alert oriented x 3 Consciousness 2- Awake and alert oriented x 3 O2 Saturation 2- Able to maintain O2 satruation of 92% on room air O2 Saturation 2- Able to maintain O2 satruation of 92% on room air Respiratory 2- Able to deep breathe and cough well Respiratory 2- Able to deep breathe and cough well Total Score 10 Total Score 10 Contrast Agent: Isovue Diagnostic Contrast: 27 ml Total Contrast: 27 ml Fluoro Dose: 38 mGy Procedure Log Time Note Enter By 11:00 AM CathStat 11:37 AM Vitals capture started with the following parameters, Patient=Adult, Interval=5 min, Initial Dksgarri=289 mmHg, Deflation Rate=3 mmHg, Cuff placed on Right Arm 11:38 AM Pt arrived to laborer landscape 1 at 11:37 [email or web address] 11:38 AM Sam Christine RN Position: Monitor Time in: 11:38 [email or web address] 11:38 AM Pau Mejia RT (R) Position: Scrub Time in: 11:38 [email or web address] 11:38 AM King Guzman RN Position: Developing Machine Operator Time in: 11:38 [email or web address] 11:38 AM Patient charges- Angio tray pack, Navilyst 3mm J, Pulse Oximetry and ACIST tubing and transducer [facility] 11:38 AM Physician arrived 11:38 [email or web address] 11:38 AM Meet and luis completed [email or web address] 11:38 AM Sign in performed according to hospital policy. Informed consent was obtained. [email or web address] 11:38 AM Procedure start 11:38 [email or web address] 11:38 AM HR=65 bpm, HYZW=981/63 mmhg, SpO2=91.0 %, Resp=17 B/min, Comment=nsr 11:38 AM Hair removed from procedure site in procedure lab using clippers. Right wrist/right groin prepped with Chloraprep by Pau Mejia (R), then patient was draped. Skin intact. [email or web address] 11:39 AM Time: 11:38 Patient comfortable and pain free: Yes [email or web address] 11:39 AM Time: 11:39LOC: 5 = Fully awake and oriented or at pre-proc level [email or web address] 11:42 AM ASA Class CLASS II- Mild systemic disease (i.e. well-controlled diabetes, hypertension, asthma, cigarette smoking) [email or web address] 11:43 AM HR=65 bpm, CHRR=654/60 mmhg, SpO2=87.0 %, Resp=25 B/min, Comment=nsr 11:43 AM Time: 11:43 Oxygen on at 4 L/min per nasal cannula by King Guzman RN [email or web address] 11:43 AM Time: 11:43 Versed 2 mg Intravenous Given by King Guzman RN [email or web address] 11:44 AM Time: 11:43 Fentanyl 25 mcg Intravenous Given by King Guzman RN [email or web address] 11:48 AM HR=61 bpm, NIBP=93/51 mmhg, SpO2=83.0 %, Resp=10 B/min, Comment=nsr 11:53 AM Time out was performed according to hospital policy. Conscious sedation and anesthesia was achieved (see medication log with in this report above) [email or web address] 11:53 AM Time: 11:53 0.5 ml Lidocaine 2% to right radial Subcutaneous [facility] 11[facility] AM HR=61 bpm, NIBP=88/53 mmhg, SpO2=87.0 %, Resp=11 B/min, Comment=nsr 11:54 AM Time: 11:39 Patient comfortable and pain free: Yes [email or web address] 11:54 AM Access obtained by percutaneous puncture. 6/7Fr 11cm Terumo Glidesheath sheath placed in right Radial artery. [id number] [email or web address] 11:55 AM Time: 11:39LOC: 4 = Oriented but drowsy [email or web address] 11:55 AM Time: 11:55 Oxygen on at 10 L/min per Oxy Mask by King Guzman RN [email or web address] 11:55 AM Time: 11:55 Patient given 2,000 units Heparin, 200 mcg Nitroglycerin, and 2.5 mg Verapamil Intraarterial by Kris Juarez MD, FACC. This is given to reduce risk of vessel spasm and thrombosis. [email or web address] 11:56 AM Pressure channel 1 zero failed. 11:57 AM 0.035 145cm VSI Vinayak-Torque wire [id number] [email or web address] 11:58 AM Wire removed [email or web address] 11:58 AM 5Fr TIG catheter inserted over the wire DN [email or web address] 11:58 AM HR=60 bpm, NIBP=83/51 mmhg, SpO2=95.0 %, Resp=13 B/min, Comment=nsr 11:58 AM Recorded Pressure: Ao, HR=60, Condition=Condition 1 (Aorta) Ao 103/78/90 11:59 AM RCA angiography performed in multiple views. [email or web address] 11:59 AM repositioned to LCA [email or web address] 11:59 AM LCA angiography performed in multiple views. [email or web address] 12:01 PM Catheter removed [email or web address] 12:02 PM 5Fr Pigtail catheter inserted over the wire DN [email or web address] 12:03 PM HR=58 bpm, NIBP=94/48 mmhg, SpO2=90.0 %, Resp=14 B/min, Comment=sb 12:05 PM Catheter removed [email or web address] 12:06 PM Unable to cross the valve for LV Gram [email or web address] 12:06 PM Coronary Dominance: right [email or web address] 12:06 PM Procedure completed at 12:06 12/12/2018 [email or web address] 12:06 PM Did you address KAR flow and Dominance? Yes [email or web address] 12:07 PM Sign out completed: Radiation Dose 382.72 mGy, 37.79 Gy/cm2 Fluoro Time: 3.4 Isovue 370 - 200ml contrast 27 ml given by Kris Juarez MD, FACC. Complications: None. 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 Cardiac Rehab Consult needed: YesConfirmed administered medications: Yes [email or web address] 12:07 PM Isovue 370 - 200ml,1 Bottle(s) used. [email or web address] 12:07 PM Arterial sheath pulled, Vasc Band closure device used and was Successful S/N. [email or web address] 12:07 PM 9 ml air in Vasc Band. [email or web address] 12:07 PM Estimated Blood Loss: less than 20cc [email or web address] 12:07 PM Post ECG NSR [email or web address] 12:07 PM Post Blood Pressure 94/48 [email or web address] 12:08 PM 12:07 Post Pulses Bilateral radial 2+ [email or web address] 12:08 PM Information taught Cardiac Cath and Vasc Band [email or web address] 12:08 PM HR=61 bpm, RNPS=534/54 mmhg, SpO2=93.0 %, Comment=sb 12:08 PM Education needs Procedure, Plan of Care, and Responsibilities of Patient in Care [email or web address] 12:08 PM Learning barriers :None [email or web address] 12:08 PM Education Methods Verbal [email or web address] 12:08 PM Education evaluation Able to repeat information [email or web address] 12:09 PM Site status No bleeding/hematoma - Rt Wrist as reported by Sites, Pau RT (R) at 12:09 [email or web address] 12:09 PM Time: 11:54 Patient comfortable and pain free: Yes [email or web address] 12:10 PM Time: 11:55LOC: 4 = Oriented but drowsy [email or web address] 12:11 PM Opsite applied [email or web address] 12:11 PM Report given to Taqueria GUERRERO Pt taken to ICU Room #8. 12:11 [email or web address] 12:14 PM Cardiothoracic surgeon called. Spoke to Dr. Strong for consult. [email or web address] 12:14 PM Plavix, Effient or Brilinta given No. Pt had earlier today. [email or web address] 12:15 PM Complications: None [email or web address] 12:15 PM Family placed in consult room. [email or web address] 12:15 PM Patient out of room: 12:15 [email or web address] 12:17 PM Lesion found in Mid RCA. Pre Stenosis: 100 Pre KAR Flow: [email or web address] 12:17 PM Lesion found in Distal LMCA. Pre Stenosis: 90 Pre KAR Flow: [email or web address] 12:17 PM Lesion found in Proximal LAD. Pre Stenosis: 80 Pre KAR Flow: [email or web address] 12:17 PM Left Main Coronary Artery with 90% stenosis [email or web address] 12:17 PM Proximal Left Anterior Descending Coronary Artery with 80% stenosis. If graft is supplying this territory, 0 % stenosis. [email or web address] 12:17 PM Right Coronary, Right Posterior Descending Arteries with Right Posterolateral and Acute Marginal branches with 100 % stenosis. If graft is supplying this area, 0 % stenosis [email or web address] Complications Complication None None Hemodynamics Pressures Site Systolic/A Wave Diastolic/V Wave Mean AO 103 78 90 Post Procedure Information Blood Pressure: 94/48 mmHg Rhythm: NSR Post procedural instructions were given Surgery consult for CABG Closure Device Time Device Success/Fail Mechanical Compression Successful Site Checks Time Location Status Staff Sheath In? Note 12:09 PM Rt Wrist No bleeding/hematoma Sites, Pau RT (R) Pulses Time Site Pre-Procedure Post-Procedure Note Bilateral radial 2+ Bilateral DP 2+ Bilateral PT 1+ 12:07:00 PM Bilateral radial 2+ Updated by Margareth Rhoades, RT(R) on 12/12/2018 12:24:41 PM electronically signed on 12/12/2018 12:25:21 PM with status of Final
--- NOTE | 2018-12-12 12:32 | Gastroenterology Consult Note ---
Date of Encounter: 12/12/18 Time of Encounter: 09:15 - Assessment and plan (1) GI bleed Current Visit: Yes Status: Acute Assessment and plan: Pt reports bright red bloody emesis and stools. He has a history of gastric ulcers and has been taking asa 325 mg po daily at home. He will need EGD and colonoscopy to rule out esophagitis, gastritis, duodenitis, PUD and avms when ok per cardiology standpoint. Qualifiers: GI bleed type/associated pathology: gastric ulcer Qualified Code(s): K25.4 - Chronic or unspecified gastric ulcer with hemorrhage (2) STEMI (ST elevation myocardial infarction) Current Visit: Yes Status: Acute Assessment and plan: followed by cardiology, sheduled for [facility] today Qualifiers: Involved coronary artery: unspecified coronary artery Qualified Code(s): I21.3 - ST elevation (STEMI) myocardial infarction of unspecified site - Time Spent With Patient Total time spent is greater than 50% in coordination of care (as documented) at patient's floor/unit and/or counseling patient: GI History of Present Illness - Data of Consult Patient: new to practice Consult date: 12/12/18 Requesting Physician: Maryann Suh - Consult Narrative Reason for consult: gi bleed History of present illness: Mr. Bain is a 83 year old male with past medical history arthritis, coronary artery disease, GERD, GI bleeding, hyperlipidemia, hypertension, renal disease, thyroid disease, status post angioplasty and stent placement in 2014. He presented in transfer from [facility] for concerns of hematemesis followed by bloody stool. He states he had bright red vomiting and bright red BM at home. He states he had 2 days of poor appetite followed by acute onset of nausea, abdominal cramping, and vomiting. This prompted him to go to the ER where he was seen, evaluated, and transferred here to [facility] for further workup and care. He had a witnessed bloody bowel movement. He admits to some heartburn for last 3 days. He denies any fevers, chills, or night sweats. He does state he has had a history of stomach ulcer many years ago and that his symptoms he has now are identical to when he had his ulcer. He denies any heavy alcohol use or heavy caffeine use. He does admit to taking 81 mg or 325 mg asa every day at home "which ever one I have on hand". Hgb was 10.6 on admission and is currently 9.6. He had chest pain overnight, troponin was elevated and he was started on nitroglycerine and heparin drips and transferred to the ICU. Procedures: 1998 gastric ulcers and normal colonoscopy Past Med Surg Social Fam HX - Past Medical History Medical history: arthritis (Gout), coronary artery disease, GERD, GI bleed, hyperlipidemia, hypertension, renal disease, thyroid disease Additional medical history: murrur, stomach ulcers Psychiatric history: no psych history - Past Surgical History Surgical History: angioplasty/stent (Single, 2015), appendectomy, orthopedic, other (Rotator cuff repair) Additional surgical history: rotator cuff - Social History Smoking Status: Never smoker Smokeless Tobacco Status: No Alcohol use: occasionally Drug use: none - Family History Mother History Unknown: Yes Living Status: Father History Unknown: Yes Living Status: Review of Systems: GI: as per [facility] GENERAL: denies fever orchills EYES: denies yellow discoloration ENT: denies pain with swallowing or difficulty swallowing CARDIO:see hpi RESP: Shortness of breath with exertion : denies change in color of urine NEURO: weakness HEME: Denies any bruising MS: chronic joint pain DERM: denies rash or itching PSYCH: Denies history of anxiety or depression - Constitutional Vitals: Temp Pulse Resp BP Pulse Ox 98.1 F 63 20 94/57 92 12/12/18 11:00 12/12/18 11:12 12/12/18 11:00 12/12/18 11:00 12/12/18 11:00 Exam: CONSTITUTIONAL:alert, no acute distress.HEAD:normocephalic, scab noted to nose.EYES:no jaundice.NECK:no obvious swelling.HEART:regular rate and rhythm, no murmurs.LUNGS:bilateral fair air entry.ABDOMEN:non distended, soft, non tender, no masses palpable, no organomegaly.RECTAL EXAM:Deferred.EXTREMITIES:no clubbing, cyanosis, codey BLE edema.SKIN:pallor noted, no stigmata of chronic liver disease.NEUROLOGIC:no obvious focal defect. Results - Labs CBC & Chem 7: 12/12/18 09:18 12/12/18 09:18 Labs: Last Result Calcium 8.2 mg/dL (8.6-10.3) L 12/12/18 09:18 Troponin I 8.40 ng/mL (< 0.04) H* 12/12/18 09:18 Entire Visit Hgb 9.6 g/dL (12.9-16.9) L 12/12/18 09:18 Hct 30.5 % (37.5-50.1) L 12/12/18 09:18 PT 11.8 Seconds (9.4-12.1) 12/11/18 17:01 Total Bilirubin 0.6 mg/dL (0.3-1.0) 12/12/18 09:18 AST 80 Units/L (13-39) H 12/12/18 09:18 ALT 18 Units/L (7-52) 12/12/18 09:18 Amylase 57 Units/L (29-103) 12/11/18 05:00 Lipase 40 Units/L (11-82) 12/11/18 05:00 - ABG ABG results: PT/INR, D-dimer PT 11.8 Seconds (9.4-12.1) 12/11/18 17:01 - Impressions Impressions Echocardiogram 12/11/18 20:46 Impressions: Unable to assess LVEF accurately due to lack of LV contrast, grossly mild LVEF reduction to low normal LVEF. Mild concentric left ventricular hypertrophy. Mild left ventricular diastolic dysfunction. Moderately dilated left atrium. Normal right ventricular structure and function. Mild-moderate mitral regurgitation. Mild tricuspid regurgitation. No pulmonary hypertension. Recommend limited echo with definity for LVEF and wall motion. Left Ventricular Wall Motion: Rest Echo Findings The apical anterior, mid anterior, basal anterior, apical lateral, mid anterior lateral, basal anterior lateral, mid inferior lateral and basal inferior lateral mc were not visualized. All other wall segments showed normal motion. Findings: Study Quality * Technically sub-optimal due to poor echocardiographic windows. ECG Findings * Normal sinus rhythm. Left Ventricle * Not all mc visualized, grossly mild LVEF reduction. * Normal LV chamber size. * Mild concentric left ventricular hypertrophy. * Mild left ventricular diastolic dysfunction. Right Ventricle * Normal right ventricular structure and function. Left Atrium * Moderately dilated left atrium. Right Atrium * Normal right atrial size. Interatrial Septum * Interatrial septum not well evaluated. Aortic Valve * Aortic valve not well visualized. * Moderately calcified aortic valve leaflets. * No aortic stenosis. * No aortic regurgitation. Mitral Valve * Mild mitral annular calcification * Mild-moderate mitral regurgitation. * No mitral stenosis. Tricuspid Valve * Normal tricuspid valve structure. * No tricuspid stenosis. * Mild tricuspid regurgitation. * Estimated RVSP is 35 mmHg. * Estimated RA pressure is 8 mmHg. * No pulmonary hypertension. Pulmonic Valve * Pulmonic valve is not well visualized. * No pulmonic stenosis. * No pulmonic regurgitation. Aorta * Normally sized aortic root. Pericardium * There is no pericardial effusion present. IVC * The IVC is dilated. * > 50% respiratory change Consult Discharge Plan - Plan Referrals: NONE,PCP [Primary Care Provider] -
--- NOTE | 2018-12-12 16:32 | Cardiothoracic Consult Note ---
Date of Encounter: 12/12/18 Time of Encounter: 16:27 Assessment and Plan (1) NSTEMI (non-ST elevated myocardial infarction) Current Visit: Yes Status: Acute The patient is an 83-year-old hypertensive man with hypercholesterolemia and known CAD. His cardiac history dates back to 2014 at which time he underwent RCA PCI with stent placement. He was transferred to [facility] from [facility] with a 2 day history of hematemesis and hematochezia. Last evening, he developed nonradiating substernal chest pain and was found to have elevated troponin I levels consistent with an acute NSTEMI. He was scheduled for cardiac catheterization and possible PCI today and received Plavix last evening. During the cardiac catheterization today was found to have severe 3 vessel CAD. In particular, the patient has a heavily calcified 90% distal left main lesion, heavily calcified 80% proximal LAD lesion, and a completely occluded mid RCA which fills distally via [id number] collaterals. He has been recommended for CABG. While I reviewed the patient would be best served with CABG, given his advanced age, confounding medical problems, lack of venous conduit (secondary to bilateral lower extremity varicosities), GI ble eding, and recent Plavix dose, he is an extremely high risk for CABG. The STS risk calculator reveals an operative mortality risk 6.67%, renal failure risk 4.2%, permanent stroke risk 1.6%, deep sternal wound infection 0.67%, and reoperation risk 3.24%. The patient [facility]. The assessment and plan as outlined above was discussed with the patient and/or family members who expressed understanding and agreement. All questions were answered. - History of Present Illness Consult date: 12/12/18 Requesting physician: Haley Mcgregor Consult reason: CABG evaluation Chief complaint: NSTEMI History of present illness: Mr. Bain is a 83 year old hypertensive man with hypercholesterolemia and known CAD. The patient's cardiac history dates back to 2014 at which time he underwent cardiac catheterization with RCA PCI and stent placement. He did well until approximately 2 months ago when he began experiencing exertional, nonradiating substernal chest pain. The patient states that he would have symptoms while cutting firewood and began taking nitroglycerin 2-4 times each d ay. He developed hematemesis and hematemesis 2 days ago. He was evaluated at [facility] and transferred to [facility] for further care. Last evening, the patient developed nonradiating substernal chest pain and was treated medically. He was found to have elevated troponin I levels consistent with an acute NSTEMI. He received Plavix in anticipation of a repeat cardiac catheterization with PCI. The patient underwent a transthoracic echocardiogram which revealed low normal ejection fraction. No specific value could be assigned due to lack of contrast per the report. He also had mild to moderate mitral regurgitation and mild tricuspid regurgitation. He underwent cardiac catheterization today and was found to have severe 3 vessel CAD. In particular, the patient has a 90% distal left main lesion, an 80% proximal LAD lesion, and a completely occluded mid RCA which fills distally via [id number] collaterals. He has been recommended for urgent CABG. Past Med Surg Social Fam HX - Past Medical History Medical history: arthritis (Gout), coronary artery disease, GERD, GI bleed, hype rlipidemia, hypertension, renal disease (CKD, stage III), thyroid disease, other (Left lower extremity DVT with pulmonary embolus, remote) Additional medical history: murrur, stomach ulcers Psychiatric history: no psych history - Past Surgical History Surgical History: angioplasty/stent (Single, 2014), appendectomy, orthopedic, other (Left rotator cuff repair) Additional surgical history: rotator cuff - Social History Smoking Status: Former smoker Packs per day: 1PPD x 4YRS Smokeless Tobacco Status: No Alcohol use: occasionally Drug use: none Occupational status: retired Current living situation: Home - Independent Activity Level: Independent ambulation, Very active Recent Out of Country Travel Within the Last 8 Weeks: No Exposure or Possible Exposure to Illness During Travel: No - Family History Mother History Unknown: Yes Living Status: Father History Unknown: Yes Living Status: Medications and Allergies Atorvastatin [Lipitor] 40 mg PO HS 12/11/18 [History] Febuxostat [Uloric] 40 mg PO DAILY 12/11/18 [History] Furosemide [Lasix] 10 mg PO BID 12/11/18 [History] Levothyroxine [Synthroid] 150 mcg PO DAILY 12/11/18 [History] Metoprolol [Lopressor] 100 mg PO BID 12/11/18 [History] Allergy/AdvReac Type Severity Reaction Status Date / Time No Known Allergies Allergy Unverified 12/11/18 00:55 All Systems Review: The remainder of the systems were reviewed and are negative Physical Examination Vital Signs, Last 4 Hours Temp Pulse Resp BP Pulse Ox 12/12/18 15:12 64 12/12/18 15:00 64 18 103/55 95 12/12/18 14:00 60 18 102/55 92 12/12/18 13:45 60 18 100/56 94 12/12/18 13:30 60 20 107/61 93 12/12/18 13:15 61 20 105/81 94 12/12/18 13:00 59 18 99/53 94 12/12/18 12:45 61 18 98/60 95 12/12/18 12:31 56 18 100/61 96 12/12/18 12:30 98.1 F 56 16 100/61 96 General: Conversant, No Apparent Distress HEENT: Atraumatic, Normocephaly, Trachea midline Neck: No JVD, Normal carotid pulses Cardiac: Reg Rate and Rhythm, Normal S1 and S2, No Murmur Lungs: Normal Breath Sounds, No Wheeze, Rales, Rhonchi Neuro: Alert and responsive, No focal deficits noted, Motor nerves intact, Se nsory nerves intact Vascular: Normal capillary refill Abdomen: Soft, Non-tender Skin: No rashes noted on visualized skin Musculoskeletal: No Chest Wall Tenderness Extremities: No Clubbing, No Cyanosis, Other (2+ to 3+ bilateral lower extremity pitting edema, lower extremity venous stasis changes bilaterally) Results 12/12/18 09:18 12/12/18 09:18 Lab Results, Last 24 hours 12/11/18 12/11/18 12/11/18 17:01 17:01 17:01 WBC 10.4 Hgb 9.8 L Hct 30.8 L Plt Count 175 INR 1.0 Sodium Potassium Chloride Carbon Dioxide BUN Creatinine Glucose Calcium Magnesium Total Bilirubin AST ALT Alkaline Phosphatase Troponin I 0.42 H* 12/11/18 12/12/18 12/12/18 23:03 09:18 09:18 WBC Hgb Hct Plt Count INR Sodium 141 Potassium 4.1 Chloride 111 H Carbon Dioxide 22 L BUN 37 H Creatinine 1.41 H Glucose 112 H Calcium 8.2 L Magnesium 2.1 Total Bilirubin 0.6 AST 80 H ALT 18 Alkaline Phosphatase 70 Troponin I 2.97 H* 8.40 H* 12/12/18 09:18 WBC 9.2 Hgb 9.6 L Hct 30.5 L Plt Count 157 INR Sodium Potassium Chloride Carbon Dioxide BUN Creatinine Glucose Calcium Magnesium Total Bilirubin AST ALT Alkaline Phosphatase Troponin I Consult Discharge Plan - Plan Referrals: NONE,PCP [Primary Care Provider] -
[2018-12-12] MEDS: Nitroglycerin 25 MG/250 ML INFUS..BTL IVC SCH (17:10)
--- NOTE | 2018-12-12 17:11 | Discharge Summary ---
<Andre Owens - Last Filed: 12/12/18 17:08> Orders not resulted at time of discharge: Pending orders 12/11/18 08:10 Culture,Blood [BC] Stat 12/12/18 09:40 EKG [ECG 12 lead ECG] [ECG] Routine 12/12/18 10:45 CL Cardiac Catheterization [CL] Routine 12/12/18 17:05 Heparin anti-factor XA UFH [COAG] Stat Date of Encounter: 12/12/18 Time of Encounter: 17:08 - Discharge Diagnosis (1) NSTEMI (non-ST elevated myocardial infarction) Priority: Primary Status: Acute (2) Abdominal pain Priority: Secondary Status: Resolved Qualifiers: Abdominal location: epigastric Qualified Code(s): R10.13 - Epigastric pain (3) Chronic renal insufficiency Priority: Secondary Status: Chronic Qualifiers: Chronic kidney disease stage: stage 2 (mild) Qualified Code(s): N18.2 - Chronic kidney disease, stage 2 (mild) (4) Coronary artery disease Priority: Secondary Status: Chronic Qualifiers: Coronary Disease-Associated Artery/Lesion type: [place] artery [place] vs. transplanted heart: [place] heart Associated angina: with unstable angina Qualified Code(s): I25.110 - Atherosclerotic heart disease of [place] coronary artery with unstable angina pectoris (5) GI bleed Priority: Secondary Status: Acute Qualifiers: GI bleed type/associated pathology: gastric ulcer Qualified Code(s): K25.4 - Chronic or unspecified gastric ulcer with hemorrhage (6) Iliac artery aneurysm, right Priority: Secondary Status: Acute (7) Left upper lobe pneumonia Priority: Secondary Status: Acute Qualifiers: Pneumonia type: due to unspecified organism Qualified Code(s): J18.1 - Lobar pneumonia, unspecified organism Hospital course: Mr. Bain is a 83 year old male presented chief complaint of hematochezia, hematemesis. Patient presented to. Patient reports that in the past few days he has had some chest discomfort and indigestion. Patient was started on Protonix drip and GI was consulted. Patient's hemoglobin on admission was 10.6 and on discharge is 9.6. Furthermore he has also had some chest pain over the past few months and has taken isosorbide for symptom relief. Patient had a EKG showed ST depressions in the precordial leads as well as ST elevation in lead 3. He was started on a heparin drip, nitroglycerin, Plavix load and interventional cardiology was consulted. Patient's troponin initially was 0.42 and increased to 8.40. Patient underwent cardiac catheterization which showed triple vessel disease and CT surgery was consulted for opinion on CABG. Patient had heavily calcified 90% distal left main lesion, heavily calcified 80% proximal LAD lesion and completely occluded mid RCA which fills distally via [id number] collaterals. CT surgery reported the patient is high risk for CABG due to his age, medical problems, lack of venous conduit, GI bleeding and recent Plavix dose. And patient was offered for CABG evaluation at [facility] and would like to be transferred. Furthermore patient CT abdomen and pelvis showed focal inflammatory changes and fat stranding with possible milk mild wall thickening of the second portion of the duodenum as well as focal consolidation in the lingula with air bronchograms may represent left upper lobe pneumonia. Patient was started on Zosyn. Furthermore GI evaluated patient and were planning on doing EGD and colonoscopy however since family and patient requested for [facility] transfer for CABG evaluation this was deferred. At the point of discharge patient's blood pressure is stable and he again had another maroon bowel movement. He is on heparin drip, Protonix drip, aspirin, Plavix, statin. Discharge discussed with: patient, family - Time Spent with Patient Total time spent providing and/or coordinating discharge services: - Discharge Medications Home Medications: Atorvastatin [Lipitor] 40 mg PO HS 12/11/18 [History] RX: Furosemide [Lasix] 10 mg PO BID 12/11/18 [History] RX: Levothyroxine [Synthroid] 150 mcg PO DAILY 12/11/18 [History] RX: Metoprolol [Lopressor] 100 mg PO BID 12/11/18 [History] RX: Aspirin 81 mg PO DAILY tab.chew 12/12/18 [Rx] RX: Atorvastatin [Lipitor] 80 mg PO HS tablet 12/12/18 [Rx] RX: Clopidogrel [Plavix] 75 mg PO DAILY tablet 12/12/18 [Rx] RX: Isosorbide DInitrate [Isordil] 5 mg PO TIDAC tablet 12/12/18 [Rx] Allergies/Adverse Reactions: Allergy/AdvReac Type Severity Reaction Status Date / Time No Known Allergies Allergy Unverified 12/11/18 00:55 Date of admission: 12/12/18 12:21 Primary care physician: PCP NONE Consults: 12/11/18 08:59 Consult to Gastroenterology [CONS] Routine Consulting Provider: Gastroenterology [place] Reason for Consult: hematemesis. bloody stools Call Completed: No 12/11/18 15:51 Consult to Cardiology [CONS] Routine Comment: Consulting Provider: Cardiology [place] Reason for Consult: Chest pain. Elevated trops. Has GI bleed Call Completed: No Discharging clinician: Andre Owens - Constitutional Vitals: Temp Pulse Resp BP Pulse Ox 98.1 F 67 20 107/62 93 12/12/18 12:30 12/12/18 17:00 12/12/18 17:00 12/12/18 17:00 12/12/18 17:00 General appearance: Present: cooperative, A&O X 3, pleasant, no acute distress, answers questions appropriately Exam: General: pleasant, without distress HEENT: Head atraumatic, normocephalic, EOMI, PERRL, absent ear discharge or trauma, Moist Mucous Membranes, uvula midline Neck: nontender to palpation, absent lymphadenopathy, Cardiovascualr: Regular rate and rhythm with no murmur, absent gallops or rubs, mild bilateral pedal edema, radial pulses 2 out of 4 Lungs: Clear to auscultation bilaterally, not in respiratory distress Abdomen: Soft nontender, nondistended positive bowel sounds, absent hepatomegaly Skin: warm and dry, absent rash, absent open wounds and nodules MSK: absent clubbing, cyanosis, joints without swelling Neuro: Alert oriented 3 no focal deficits Psych: good insight and judgment, - Patient Status Disposition: Transfer Critical Access Hosp Condition: Critical Functional capacity at discharge: bed bound Overall status at discharge: patient is not back to baseline - Discharge Instructions Follow Up With: NONE,PCP [Primary Care Provider] - - Diet and Activity Activity: other (Bedbound) Diet: other (Nothing by mouth) <Maryann Suh - Last Filed: 12/13/18 15:18> Orders not resulted at time of discharge: Pending orders 12/11/18 08:10 Culture,Blood [BC] Stat 12/13/18 23:00 Heparin anti-factor XA UFH [COAG] Timed Date of Encounter: 12/13/18 - Discharge Diagnosis (1) Upper GI bleeding Status: Inactive (2) Chronic renal insufficiency Status: Chronic Qualifiers: Chronic kidney disease stage: stage 2 (mild) Qualified Code(s): N18.2 - Chronic kidney disease, stage 2 (mild) (3) Abdominal pain Status: Resolved Qualifiers: Abdominal location: epigastric Qualified Code(s): R10.13 - Epigastric pain (4) DVT prophylaxis Status: Acute Hospital course: Mr. Bain is a 83 year old male - Time Spent with Patient Total time spent providing and/or coordinating discharge services: Greater than 30 minutes Date of admission: 12/12/18 12:21 Primary care physician: PCP NONE Consults: 12/11/18 08:59 Consult to Gastroenterology [CONS] Routine Consulting Provider: Gastroenterology [place] Reason for Consult: hematemesis. bloody stools Call Completed: No 12/11/18 15:51 Consult to Cardiology [CONS] Routine Comment: Consulting Provider: Cardiology [place] Reason for Consult: Chest pain. Elevated trops. Has GI bleed Call Completed: No - Constitutional Vitals: Temp Pulse Resp BP Pulse Ox 98.0 F 71 18 104/56 94 12/13/18 12:27 12/13/18 14:00 12/13/18 14:00 12/13/18 14:00 12/13/18 14:00 - Attending Attestation I examined this patient and my medical decision-making was reviewed with the Resident Physician. I agree with the documented discharge as above. Admitted for GI bleed but H/H was stable throughout. Developed chest pain while inpatient and EKG showed ST elevation in lead III and significant other ischemic changes. Had cardiology see him and went for a C showing severe multi vessel disease. Recommended CABG. Seen by cardiothoracics and referred him to [facility] for high risk CABG eval. GEN: NAD CVS: RRR. S1, S2, No m/r/g RESP: CTAB ABD: Soft, NT, ND, +BS EXT: No edema. 2+ DP. No rashes NEURO: Nonfocal Addendum entered and electronically signed by Andre Owens DO 12/12/18 17:30: Correction patient did not have any additional BM since admission. Please disregard the statement: "he again had another maroon bowel movement."
[2018-12-12] MEDS: Heparin 25,000 UNIT/500 ML D5W 25,000 UNIT/500 ML BAG IVC SCH (23:17)
[2018-12-13] MEDS: Pantoprazole 40 MG in 0.9 % Sodium Chloride Mini Bag 100 ML IVC SCH ×3 (02:02→11:20)
[2018-12-13] MEDS: Heparin 25,000 UNIT/500 ML D5W 25,000 UNIT/500 ML BAG IVC SCH (05:21)
[2018-12-13 06:51] LABS: Basophils # 0.1 K/mcL (0.0-0.2); Basophils % 0.6 %; Eosinophils # 0.3 K/mcL (0.0-0.6); Eosinophils % 4.1 %; Hematocrit 29.6 % (37.5-50.1); Hemoglobin 9.1 g/dL (12.9-16.9); Immature Granulocytes % 0.4 % (0-4); Lymphocytes # 0.9 K/mcL (0.6-4.6); Lymphocytes % 11.3 %; Mean Corpuscular HGB Conc 30.7 g/dL (31.6-35.5); Mean Corpuscular Hemoglobin 30.6 pg (28.0-33.3); Mean Corpuscular Volume 99.7 fL (83.0-100.0); Mean Platelet Volume 9.6 fL (9.4-12.4); Monocytes # 0.6 K/mcL (0.0-1.3); Monocytes % 7.3 %; Neutrophils # 6.4 K/mcL (1.6-8.9); Platelet Count 156 K/mcL (140-400); Red Blood Count 2.97 M/mcL (4.19-5.50); Red Cell Distribution Width 15.8 % (11.5-14.5); Segmented Neutrophils % 76.3 %
[2018-12-13 07:10] LABS: BUN/Creatinine Ratio 24 (6-26); Blood Urea Nitrogen 29 mg/dL (8-23); Calcium 8.4 mg/dL (8.6-10.3); Carbon Dioxide 21 mEq/L (23-29); Chloride 113 mEq/L (98-107); Glucose 107 mg/dL (70-105); Osmolality,Calculated 294 (280-300); Sodium 139 mEq/L (136-145); eGFR For Non-African Americans 56 (> 60)
[2018-12-13] MEDS: Aspirin 81 MG TAB.CHEW PO SCH (08:20)
[2018-12-13] MEDS: Metoprolol 100 MG TABLET PO SCH (08:20)
[2018-12-13] MEDS: Nitroglycerin 25 MG/250 ML INFUS..BTL IVC SCH (13:59)
[2018-12-13] MEDS: Ondansetron 4 MG/2 ML VIAL IVP PRN (14:00)
[2018-12-13 14:41] VITALS: BP 104/56
--- NOTE | 2018-12-13 16:09 | Internal Med Progress Note ---
Hospitalist Progress Note - Encounter Date of Encounter: 12/13/18 Time of Encounter: 08:00 - Subjective Interval History: No acute events overnight .Patient reports his SOB is stable. He did not have any additional chest pain. He also denies abdominal pain. He has mild LE edema. - Exam Vitals: Temp Pulse Resp BP Pulse Ox 98.0 F 71 18 104/56 94 12/13/18 12:27 12/13/18 14:00 12/13/18 14:00 12/13/18 14:00 12/13/18 14:00 Exam: General: pleasant, without distress HEENT: Head atraumatic, normocephalic, EOMI, PERRL, absent ear discharge or trauma, Moist Mucous Membranes, uvula midline Neck: nontender to palpation, absent lymphadenopathy, Cardiovascualr: Regular rate and rhythm with no murmur, absent gallops or rubs, mild bilateral pedal edema, radial pulses 2 out of 4 Lungs: Clear to auscultation bilaterally, not in respiratory distress Abdomen: Soft nontender, nondistended positive bowel sounds, absent hepatomegaly Skin: warm and dry, absent rash, absent open wounds and nodules MSK: absent clubbing, cyanosis, joints without swelling Neuro: Alert oriented 3 no focal deficits Psych: good insight and judgment, - Assessment and Plan (1) NSTEMI (non-ST elevated myocardial infarction) Status: Acute Assessment and Plan: Patient is being continued on heparin drip, aspirin, statin, bblocker. He is awaiting transfer to [facility] for CABG evaluation. (2) Chronic renal insufficiency Status: Chronic (3) Coronary artery disease Status: Chronic Assessment and Plan: Patient's [facility] showed evidence of triple vessel disease plan as above. (4) GI bleed Status: Acute Assessment and Plan: Patient hgb trended down to 9.1 He has not had additional bloody bowel movements. he is on protonix drip. (5) Left upper lobe pneumonia Status: Acute Assessment and Plan: Patient's CT abdomen pelvis showed lingual pnumonia continue zosyn day 2 blood cultures negative. - Time Spent with Patient Total time spent is greater than 50% in coordination of care (as documented) at patient's floor/unit and/or counseling patient: Internal Medicine: Result - Labs CBC & Chem 7: 12/13/18 06:30 12/13/18 06:30 Labs: Short CBC 12/13/18 Range/Units 06:30 WBC 8.3 (4.3-11.1) K/mcL Hgb 9.1 L (12.9-16.9) g/dL Hct 29.6 L (37.5-50.1) % Plt Count 156 (140-400) K/mcL Neutrophils # 6.4 (1.6-8.9) K/mcL BMP 12/13/18 06:30 Sodium 139 Potassium 4.0 Chloride 113 H Carbon Dioxide 21 L BUN 29 H Creatinine 1.23 Glucose 107 H Calcium 8.4 L - ABG Interpretation ABG results: PT/INR, D-dimer PT 11.8 Seconds (9.4-12.1) 12/11/18 17:01 Consult Discharge Plan - Plan Referrals: NONE,PCP [Primary Care Provider] - (2) Chronic renal insufficiency Qualifiers: Chronic kidney disease stage: stage 2 (mild) Qualified Code(s): N18.2 - Chronic kidney disease, stage 2 (mild) (3) Coronary artery disease Qualifiers: Coronary Disease-Associated Artery/Lesion type: jena artery [place] vs. transplanted heart: jena heart Associated angina: with unstable angina Qualified Code(s): I25.110 - Atherosclerotic heart disease of jena coronary artery with unstable angina pectoris (4) GI bleed Qualifiers: GI bleed type/associated pathology: gastric ulcer Qualified Code(s): K25.4 - Chronic or unspecified gastric ulcer with hemorrhage (5) Left upper lobe pneumonia Qualifiers: Pneumonia type: due to unspecified organism Qualified Code(s): J18.1 - Lobar pneumonia, unspecified organism
--- NOTE | 2018-12-13 20:21 | Electrocardiograph Report ---
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
--- NOTE | 2018-12-13 20:34 | Electrocardiograph Report ---
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
--- NOTE | 2018-12-13 20:39 | Electrocardiograph Report ---
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
--- NOTE | 2018-12-13 20:59 | Electrocardiograph Report ---
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
== END 2018-12-13 15:12 | disposition critical access hospital (66) | DRG 280 ==
LOC: 3ANU → SUATTDRO 04:09 → 2NENU 16:56 → ICNU 19:01
PROVIDERS: ADMIT Family Medicine; ATTEND Internal Medicine